=== PATIENT | female | born 1985 | race Hispanic/Latino ===

== ENCOUNTER 2018-08-10 17:34 | Emergency (ER) | payer OTHER ==
[~2018-08-10] VITALS: Ht 175.3 cm; Wt 104.3 kg
--- NOTE | 2018-08-10 18:54 | Diagnostic Imaging Report ---
KNEE 3VW RT - HOPD - 3 views HISTORY: Pain COMPARISON: None available. FINDINGS: Bones: No acute displaced fracture. Osseous alignment is within normal limits. Joints: The joint spaces are well-maintained. Soft tissues: The soft tissues appear unremarkable. IMPRESSION: No acute fracture or dislocation of the right knee. Signed by: Dr. Wilmar Salas MD on 08/10/2018 6:51 PM
== END 2018-08-10 19:40 | disposition home or self-care (01) ==
LOC: FSED 17:34
DX: M25.561 Pain in right knee (principal); S80.01XA Contusion of right knee, initial encounter; R26.2 Difficulty in walking, not elsewhere classified; E11.9 Type 2 diabetes mellitus without complications
CPT/HCPCS: 99283

== ENCOUNTER 2020-09-22 09:07 | Emergency (ER) | payer OTHER ==
[~2020-09-22] VITALS: Ht 175.3 cm; Wt 104.3 kg
[2020-09-22] MEDS ORDERED: METFORMIN HCL500 MG PO (10:03)
== END 2020-09-22 11:38 | disposition home or self-care (01) ==
LOC: FSED 09:15
DX: R55 Syncope and collapse (principal); R00.2 Palpitations; R11.2 Nausea with vomiting, unspecified; E11.9 Type 2 diabetes mellitus without complications; E78.5 Hyperlipidemia, unspecified; E66.9 Obesity, unspecified
CPT/HCPCS: 80053; 81003; 81025; 82553; 84484; 85025; 93005; 99284